=== PATIENT | female | born 1980 | race Caucasian/White ===

== ENCOUNTER → 2021-10-10 12:04 | Outpatient (REF) | payer OTHER, SELFPAY | LOC: ANHLAB 12:04 | PROVIDERS: Visit Provider Nurse Practitioner | DX: D22.39 Melanocytic nevi of other parts of face (principal) | CPT/HCPCS: 88305 ==

== ENCOUNTER 2023-06-04 08:00 | Outpatient (NON) | payer OTHER, SELFPAY | END 2023-06-04 08:01 | disposition home or self-care (01) | LOC: ANHLAB 06-05 12:53 | PROVIDERS: Visit Provider Nurse Practitioner | DX: D22.71 Melanocytic nevi of right lower limb, including hip (principal) | CPT/HCPCS: 88305 ==